=== PATIENT | female | born 1985 | race Caucasian/White ===

== ENCOUNTER 2017-10-23 23:48 | Emergency (ER) | payer OTHER ==
[~2017-10-23] VITALS: Ht 162.6 cm; Wt 113.4 kg
[2017-10-23] MEDS ORDERED: COLD & FLU SEV1 EACH PO (23:57)
[2017-10-23] MEDS ORDERED: IBUPROFEN 400400 M2 PO (23:57)
[2017-10-24] MEDS ORDERED: ZPAK PO (00:38)
[2017-10-24] MEDS ORDERED: ROBITUSSIN100 MG/53 PO (00:38)
[2017-10-24] MEDS ORDERED: VENTOLIN HFA 1818 GM INH (00:38)
[2017-10-24] MEDS ORDERED: PREDNISONE50 MG PO (00:38)
[2017-10-24 01:04] VITALS: BP 116/86
== END 2017-10-24 01:05 | disposition home or self-care (01) ==
LOC: M.ERS 23:48
DX: J18.9 Pneumonia, unspecified organism (principal); Z98.890 Other specified postprocedural states

== ENCOUNTER 2020-10-04 08:10 | Emergency (ER) | payer OTHER ==
[~2020-10-04] VITALS: Ht 160 cm; Wt 137.8 kg
[~2020-10-04 08:10] MED LIST: COLD & FLU SEV1 EACH PO; IBUPROFEN 400400 M2 PO; PREDNISONE50 MG PO; ROBITUSSIN100 MG/53 PO; VENTOLIN HFA 1818 GM INH; ZPAK PO
[2020-10-04] MEDS ORDERED: MIGRAINE MEDICATION PO (08:18)
[2020-10-04 08:29] LABS: ABSOLUTE BASOPHILS 0.1 thou/uL (0.0-0.2); ABSOLUTE EOSINOPHILS 0.2 thou/uL (0.0-0.7); ABSOLUTE LYMPHOCYTES 2.1 thou/uL (0.8-5.3); ABSOLUTE MONOCYTES 0.7 thou/uL (0.0-1.2); ABSOLUTE NEUTROPHILS 7.8 thou/uL (1.6-8.1); BASOPHILS 0.5 %; EOSINOPHILS 2.1 %; HEMATOCRIT 39.9 % (37.0-47.0); HEMOGLOBIN 13.4 gm/dL (12.0-15.0); LYMPHOCYTES 19.7 %; MCH 27.4 pg (26.0-34.0); MCHC 33.5 g/dL (28.0-37.0); MCV 81.8 fL (80.0-100.0); MONOCYTES 6.1 %; MPV 7.4 fl. (7.2-11.1); NUCLEATED RBCS 0 /100WBC; PLATELET COUNT* 220 thou/uL (150-400); POLYS 71.6 %; RBC 4.88 mil/uL (4.20-5.00); RDW-CV 13.9 % (10.5-14.5); WBC 10.9 thou/uL (4.0-11.0)
[2020-10-04 08:36] LABS: CALCIUM 8.4 mg/dL (8.5-10.1); CREATININE 0.7 mg/dL (0.6-1.3); POTASSIUM 3.6 mmol/L (3.5-5.1)
[2020-10-04 08:45] LABS: ALBUMIN 3.7 g/dL (3.4-5.0); TOTAL BILIRUBIN 0.2 mg/dL (<0.1-1.0); TOTAL PROTEIN 7.9 g/dL (6.4-8.2)
[2020-10-04] MEDS ORDERED: FLEXERIL PO (09:21)
--- NOTE | 2020-10-04 09:40 | EKG ---
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
[2020-10-04 10:45] VITALS: BP 112/65
== END 2020-10-04 10:45 | disposition home or self-care (01) ==
LOC: M.ERS 08:10
PROVIDERS: Emergency Medicine Emergency Medical Services
DX: R07.89 Other chest pain (principal); R06.02 Shortness of breath; R00.2 Palpitations; Z98.890 Other specified postprocedural states; Z79.899 Other long term (current) drug therapy